=== PATIENT | male | born 1940 | race Caucasian/White ===

== ENCOUNTER 2016-09-04 05:10 | Emergency (ER) | payer MEDICARE, OTHER ==
[2016-09-04 05:28] VITALS: BP 153/85
[2016-09-04] MEDS ORDERED: cefTRIAXone 1 GM, Lidocaine 1% 2.1 ML IM SCH ×2 (05:45)
--- NOTE | 2016-09-04 05:45 | EDM.PDOC ---
ED HPI GENERAL MEDICAL PROBLEM - General Chief Complaint: ENT Problem Stated Complaint: TOOTH PAIN Time Seen by Provider: 09/04/16 05:16 Source of Information: Reports: Patient History Limitations: Reports: No Limitations - History of Present Illness INITIAL COMMENTS - FREE TEXT/NARRATIVE: This is a 75-year-old male. He has a right lower tooth that has advanced dental caries and apparently he broke it some time ago. Yesterday it started hurting him and the pain has gotten worse so he comes to the ER this morning. He thinks it is been some drainage from it. There is been no swelling of his face and no bumps along his gums. He does have an appointment to see his dentist on morning. He denies any fever or chills no nausea or vomiting. Right Lower Tooth/Teeth Pain Score (Numeric/FACES): 8 - Related Data Allergies Allergy/AdvReac Type Severity Reaction Status Date / Time No Known Allergies Allergy Verified 09/04/16 05:31 Home Meds: Home Meds Hydrocodone/Acetaminophen [Hydrocodon-Acetaminophen 5-325] 1 each PO Q6H PRN # 12 tablet 09/04/16 [Rx] Penicillin V Potassium 500 mg PO Q8HR #30 tab 09/04/16 [Rx] Past Medical History Neurological History: Reports: Parkinson's Social & Family History - Tobacco Use Smoking Status *Q: Never Smoker - Recreational Drug Use Recreational Drug Use: No ED ROS ENT - Review of Systems Review Of Systems: See Below Constitutional: Denies: Fever, Chills HEENT: Reports: Other (As per history of present illness) Respiratory: Reports: No Symptoms Cardiovascular: Reports: No Symptoms GI/Abdominal: Reports: No Symptoms Musculoskeletal: Reports: No Symptoms Skin: Reports: No Symptoms Neurological: Reports: No Symptoms Psychiatric: Reports: No Symptoms Hematologic/Lymphatic: Reports: No Symptoms ED EXAM, ENT - Physical Exam Exam: See Below Exam Limited By: No Limitations General Appearance: Alert, WD/WN, No Apparent Distress Eye Exam: Bilateral Eye: Normal Inspection Ears: Normal External Exam Nose: Normal Inspection Mouth/Throat: Other (Patient has teeth that are in fair repair, the bottom right looks like the first molar is fractured and there is some mild drainage noted from it, no gum swelling no soft tissue swelling noted) Neck: Supple Respiratory/Chest: No Respiratory Distress, Lungs Clear, Normal Breath Sounds Cardiovascular: Regular Rate, Rhythm, Systolic Murmur, Other (Very faint systolic ejection murmur) GI/Abdominal: Soft, Non-Tender Back: Full Range of Motion Extremities: Normal Inspection, Normal Range of Motion Neurological: Alert, Oriented Psychiatric: Normal Affect, Normal Mood Skin: Warm, Dry Course - Vital Signs Last Recorded V/S: Last Vital Signs Temp 97.8 F 09/04/16 05:25 Pulse 53 L 09/04/16 05:25 Resp 16 09/04/16 05:25 BP 153/85 H 09/04/16 05:25 Pulse Ox 98 09/04/16 05:25 Departure - Departure Time of Disposition: 05:43 Disposition: Home, Self-Care 01 Condition: Good Clinical Impression: Dental infection, Pain, dental Tooth fracture Qualifiers: Encounter type: initial encounter Fracture type: open Qualified Code(s): S02.5XXB - Fracture of tooth (traumatic), initial encounter for open fracture - Discharge Information Prescriptions: Penicillin V Potassium 500 mg PO Q8HR #30 tab Hydrocodone/Acetaminophen [Hydrocodon-Acetaminophen 5-325] 1 each PO Q6H PRN # 12 tablet PRN Reason: Pain Referrals: Cali Hernandez MD [Primary Care Provider] - Forms: ED Department Discharge Additional Instructions: Follow-up with your dentist on morning or sooner if needed, get the medications tomorrow and take the antibiotics faithfully and use the pain medicines as needed, return to the ER if needed
== END 2016-09-04 06:18 | disposition home or self-care (01) ==
LOC: JD.ED 05:10
DX: K04.7 Periapical abscess without sinus (principal); K03.81 Cracked tooth
CPT/HCPCS: 96372; 99283; J0696

== ENCOUNTER 2018-08-07 10:24 | Emergency (ER) | payer MEDICARE, OTHER ==
[2018-08-07 10:37] VITALS: BP 119/72
--- NOTE | 2018-08-07 12:44 | EDM.PDOC ---
ED HPI GENERAL MEDICAL PROBLEM - General Chief Complaint: Lower Extremity Injury/Pain Stated Complaint: RT KNEE PAIN Time Seen by Provider: 08/07/18 12:26 Source of Information: Reports: Patient History Limitations: Reports: No Limitations - History of Present Illness INITIAL COMMENTS - FREE TEXT/NARRATIVE: Patient is a 77-year-old male Parkinson's patient who presents ED complaining of right knee pain. Patient states last night approximately 1900 hrs. he fell after losing his balance. Since then he's had increasing pain with weightbearing. He notes he has to use a walker to ambulate because of the sensation his knee is going to give out. Patient has a history of repetitive falling due to the Parkinson's. Last night he did not hit his head, nor was there any loss of consciousness, no injury to his neck/back. No pain noted to his right hip or pelvis. He has no complaints of chest pain, shortness of breath , abdominal pain, nausea/vomiting, headache, vision changes, or any new focal neurological deficits, or any complaints to the remaining extremities. He is on no blood thinners. 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 Right Knee Pain Score (Numeric/FACES): 7 - Related Data Allergies Allergy/AdvReac Type Severity Reaction Status Date / Time No Known Allergies Allergy Verified 03/10/18 13:50 Home Meds: Home Meds Carbidopa/Levodopa [Carbidopa-Levo ER 25-100] 3 tab PO 5XDAY 03/10/18 [History] ClonazePAM [KlonoPIN] 0.5 mg PO BEDTIME 03/10/18 [History] Sertraline [Zoloft] 200 mg PO DAILY 03/10/18 [History] Past Medical History Neurological History: Reports: Parkinson's - Past Surgical History HEENT Surgical History: Reports: Cataract Surgery GI Surgical History: Reports: Other (See Below) Other GI Surgeries/Procedures: hemorrhoid surgery Musculoskeletal Surgical History: Reports: Other (See Below) Other Musculoskeletal Surgeries/Procedures:: back surgery Social & Family History - Tobacco Use Smoking Status *Q: Current Status Unknown - Caffeine Use Caffeine Use: Reports: Coffee Review of Systems - Review of Systems Review Of Systems: ROS reveals no pertinent complaints other than HPI. ED EXAM, GENERAL - Physical Exam Exam: See Below Exam Limited By: No Limitations General Appearance: Alert, WD/WN, No Apparent Distress Ears: Hearing Loss Nose: Normal Inspection Throat/Mouth: Normal Voice, No Airway Compromise Head: Atraumatic, Normocephalic Neck: Normal Inspection, Supple, Non-Tender, Full Range of Motion Respiratory/Chest: No Respiratory Distress, Lungs Clear, Normal Breath Sounds, No Accessory Muscle Use, Chest Non-Tender Cardiovascular: Normal Peripheral Pulses, Regular Rate, Rhythm, No Murmur ( Obvious) Peripheral Pulses: 2+: Radial (L), Radial (R), Posterior Tibial (L), Posterior Tibial (R) GI/Abdominal: Normal Bowel Sounds, Soft, Non-Tender, No Organomegaly, No Distention Back Exam: Normal Inspection, Full Range of Motion. No: Paraspinal Tenderness, Vertebral Tenderness Extremities: Non-Tender (All extremities), No Pedal Edema, Other (With palpation of the right knee there is no pain elicited. With provocative testing : Anterior drawer/posterior drawer intact. Slight discomfort noted with valgus. None noted with varus. Patient able to flex and extend the knee with some slight tenderness noted to the medial aspect of the knee with doing so. No locking sensation noted with flexion extension of the knee with external/ internal rotation of the foot.). No: Normal Inspection (Slight swelling noted to the right knee. No bruising, abrasions, or bony abnormalities.) Neurological: Alert, Oriented, CN II-XII Intact, Normal Cognition, No Motor/ Sensory Deficits Psychiatric: Normal Affect, Normal Mood Skin Exam: Warm, Dry, Intact, Normal Color, No Rash Course - Vital Signs Last Recorded V/S: Last Vital Signs Temp 97.5 F 08/07/18 10:31 Pulse 53 L 08/07/18 10:31 Resp 19 08/07/18 10:31 BP 119/72 08/07/18 10:31 Pulse Ox 96 08/07/18 10:31 - Orders/Labs/Meds Orders: Active Orders 24 hr Category Date Time Status DME for Discharge [COMM] Stat Ot 08/07/18 12:39 Ordered - Re-Assessments/Exams Free Text/Narrative Re-Assessment/Exam: On examination of the right knee there is some slight swelling noted. No bruising, swelling, ecchymosis present. With provocative testing only discomfort was noted with valgus. Otherwise everything else was negative. He does have increasing pain with ambulation, weightbearing, with the sensation his right knee is going to give out. There is no prior history of injury to the right knee. He uses a walker intermittently at home. As of recent fall he said he use it regularly to ambulate without falling. He does have a history of falling secondary to Parkinson's. He has no other complaints at this time. X-ray of the right knee reviewed with Dr. Sotomayor with questionable loose body noted to the joint of the right knee. Otherwise joint spacing intact with slight swelling noted to the knee. No acute bony abnormalities noted. I suspect patient has injured the mcl and medial meniscus. I have ordered MRI of the Knee for outpatient and knee immobilizer upon discharge. Patient will schedule appt with Dr. Resendiz for reevaluation in 7 to 10 days. Return precautions discussed with the patient. Patient had no further questions or concerns and agreed with plan. Departure - Departure Time of Disposition: 12:48 Disposition: Home, Self-Care 01 Condition: Good Clinical Impression: Pain of right knee after injury - Discharge Information Instructions: Knee Pain, Adult, How to Use a Knee Immobilizer, [id number] Referrals: Cali Hernandez MD [Primary Care Provider] - Cl Resendiz MD [Physician] - Forms: ED Department Discharge Additional Instructions: When ambulating use the walker and knee immobilizer as instructed. Take off the end utilize her to sleep and also ice. Elevate when able to reduce any swelling and pain. Apply ice to the affected area 4 times a day, 20 minutes in duration, do not apply ice directly on the skin. Utilize Tylenol and Aleve as needed for pain. Please call and make an appointment with Dr. Resendiz to be evaluated in 7-10 days for reevaluation. I have ordered a MRI of the right knee outpatient basis. They will call you with appointment time. Please return to the ED if he developed any new or worsening symptoms. - My Orders Last 24 Hours: My Active Orders 08/07/18 12:39 DME for Discharge [COMM] Stat - Assessment/Plan Last 24 Hours: My Active Orders 08/07/18 12:39 DME for Discharge [COMM] Stat
--- NOTE | 2018-08-07 15:59 | CR ---
Right knee: Four views of the right knee were obtained. Comparison: No previous knee study. Mild medial joint space narrowing is seen. Lateral joint space is preserved. Minimal chondrocalcinosis is seen within the menisci. Small joint effusion is likely present. Mild vascular calcification is seen. No fracture or other bony abnormality is seen. Impression: 1. Slight chondrocalcinosis and mild degenerative change. 2. Probable small joint effusion. 3. No acute bony is abnormality is identified. Diagnostic code #2
== END 2018-08-07 13:03 | disposition home or self-care (01) ==
LOC: JD.ED 10:24
DX: M25.561 Pain in right knee (principal); G20 Parkinson's disease; Z79.899 Other long term (current) drug therapy
CPT/HCPCS: 73564-26-RT; 73564-RT; 99282; 99283-25

== ENCOUNTER 2019-07-26 18:07 | Inpatient (IN) | payer MEDICARE, OTHER ==
[2019-07-26] MEDS ORDERED: Sodium Chloride 0.9% 10 ML Syringe FLUSH PRN (18:39)
[2019-07-26] MEDS ORDERED: HYDROmorphone 0.5 MG/0.5 ML Syringe IVPUSH ONE (18:41)
--- NOTE | 2019-07-26 19:58 | CT ---
CT chest Technique: Multiple axial sections were obtained from above the lung apices inferiorly through the lung bases. Intravenous contrast was not utilized. Findings: Low density finding is noted within the lower most image within the abdomen measuring 8.5 cm most likely due to an upper pole left renal cyst that was incompletely included on the exam. Heart is mildly enlarged. Coronary artery calcifications seen. Aorta shows no aneurysm. Mediastinum and hilar regions show no adenopathy. No axillary adenopathy is seen. No mediastinal hematoma is identified. Slight parenchymal densities are seen within both lung bases, worse on the left side. Differential includes pre-existing pneumonia versus pulmonary contusion. Lungs otherwise are clear. No pleural effusions or pneumothorax is seen. Bone window settings were reviewed. No discrete rib abnormality is appreciated. Degenerative change is noted within the spine. There is mild sclerotic areas within the mid thoracic spine and difficult to exclude a metastatic lesion. This vertebral body also shows mild anterior wedging. There is a slightly displaced midsternal fracture being seen. Displacement by about 3 mm is seen. Mild retrosternal soft tissue swelling is seen. Impression: 1. Mildly displaced midsternal fracture with mild retrosternal soft tissue swelling. 2. Sclerotic areas within the mid thoracic vertebral body showing anterior wedging. This area of mineralization could represent a metastatic bone lesion. If primary cancer not known, bone scan could be considered on an nonemergent basis. 3. Degenerative change seen within other levels of the thoracic spine. 4. Mild areas of increased density within both lung bases worse on the left side. Findings could represent pre-existing pneumonia or represent areas of pulmonary contusion. 5. Other findings believed to be incidental as described above. Diagnostic code #3 Study was dictated in MDT
--- NOTE | 2019-07-26 20:01 | CT ---
Head CT Technique: Multiple axial sections through the brain were obtained. Intravenous contrast was not utilized. Comparison: Prior MRI brain of 06/09/11 is available, no previous head CT study is available. Findings: Ventricles along with basal cisterns and sulci over the convexities are mildly prominent. Mild diminished density is noted within the periventricular white matter most likely representing mild small vessel ischemic demyelination change. No other abnormal parenchymal densities are seen. No evidence of intracranial hemorrhage. No midline shift or mass effect is seen. Bone window settings were reviewed which shows no acute calvarial abnormality. No acute paranasal sinus findings or acute mastoid sinus findings are seen. Impression: 1. Mild senescent change. 2. No acute intracranial abnormality is seen. 3. No acute calvarial abnormality is seen. Diagnostic code #2 Study was dictated in MDT
--- NOTE | 2019-07-26 20:04 | EDM.PDOC ---
ED HPI GENERAL MEDICAL PROBLEM - General Chief Complaint: Chest Pain Stated Complaint: FELL AND HAS PAIN IN CHEST Time Seen by Provider: 07/26/19 18:33 Source of Information: Reports: Patient, Family History Limitations: Reports: No Limitations - History of Present Illness INITIAL COMMENTS - FREE TEXT/NARRATIVE: The patient presents with chest pain. The patient has Parkinson's disease and he is off balance. He fell yesterday in his yard and hit an electrical box. He landed on his chest and may have hit his head. [place] He has even more pain now. He had severe pain when moving him into the bed. He does not have a headache. He has no fever, chills, cough, congestion, runny nose, abdominal pain, nausea or vomiting. He does not feel short of breath. He has no leg pain or arm pain. The patient is not on blood thinners. Onset: Sudden Duration: Minutes: Location: Reports: Chest Quality: Reports: Sharp Severity: Severe Improves with: Reports: Immobilization Worsens with: Reports: Movement Context: Reports: Trauma (He fell yesterday and today) Associated Symptoms: Reports: Chest Pain. Denies: Cough, Fever/Chills, Headaches, Nausea/Vomiting, Shortness of Breath Chest Pain Score (Numeric/FACES): 10 - Related Data Allergies Allergy/AdvReac Type Severity Reaction Status Date / Time No Known Allergies Allergy Verified 07/26/19 18:34 Home Meds: Home Meds Carbidopa/Levodopa [Carbidopa-Levo ER 25-100] 3 tab PO 5XDAY 03/10/18 [History] ClonazePAM [KlonoPIN] 0.5 mg PO BEDTIME 03/10/18 [History] Sertraline [Zoloft] 200 mg PO DAILY 03/10/18 [History] Past Medical History Neurological History: Reports: Parkinson's - Past Surgical History HEENT Surgical History: Reports: Cataract Surgery GI Surgical History: Reports: Other (See Below) Other GI Surgeries/Procedures: hemorrhoid surgery Musculoskeletal Surgical History: Reports: Other (See Below) Other Musculoskeletal Surgeries/Procedures:: back surgery Social & Family History - Tobacco Use Smoking Status *Q: Never Smoker Second Hand Smoke Exposure: No - Caffeine Use Caffeine Use: Reports: None - Recreational Drug Use Recreational Drug Use: No ED ROS GENERAL - Review of Systems Review Of Systems: See Below Constitutional: Reports: No Symptoms HEENT: Reports: No Symptoms Respiratory: Reports: No Symptoms Cardiovascular: Reports: Chest Pain Endocrine: Reports: No Symptoms GI/Abdominal: Reports: No Symptoms : Reports: No Symptoms Musculoskeletal: Reports: No Symptoms ED EXAM, GENERAL - Physical Exam Exam: See Below Exam Limited By: No Limitations General Appearance: Alert, No Apparent Distress Ears: Normal External Exam Nose: Normal Inspection Head: Atraumatic, Normocephalic Neck: Normal Inspection, Supple, Non-Tender Respiratory/Chest: No Respiratory Distress, Lungs Clear, Normal Breath Sounds Cardiovascular: Regular Rate, Rhythm, No Edema, No Murmur, Other (Pain upon palpation to the mid chest with some ecchymosis) GI/Abdominal: Soft, Non-Tender, No Organomegaly, No Mass Extremities: Other (Skin tear to the left arm and left knee) EKG INTERPRETATION EKG Date: 07/26/19 Time: 18:43 Rhythm: Other (sinus bradycardia) Rate (Beats/Min): 54 [place]: Normal P-Wave: Present QRS: Normal ST-T: Normal QT: Normal ID/PQ Interval: 1st degree HB Course - Vital Signs Last Recorded V/S: Last Vital Signs Temp 97.2 F 07/26/19 18:29 Pulse 54 L 07/26/19 18:29 Resp 18 07/26/19 18:29 BP 173/90 H 07/26/19 18:29 Pulse Ox 98 07/26/19 18:29 - Orders/Labs/Meds Orders: Active Orders 24 hr Category Date Time Status Cardiac Monitoring [RC] . DIRECTED Care 07/26/19 18:39 Active EKG Documentation Completion [RC] STAT Care 07/26/19 18:40 Active Peripheral IV Care [RC] . DIRECTED Care 07/26/19 18:40 Active Sodium Chloride 0.9% [Saline Flush] Med 07/26/19 18:39 Active 10 ml FLUSH ASDIRECTED PRN Peripheral IV Insertion Adult [OM.PC] Stat Oth 07/26/19 18:39 Ordered Medication Orders Sodium Chloride (Saline Flush) 10 ml FLUSH ASDIRECTED PRN PRN Reason: Keep Vein Open Last Admin: 07/26/19 18:59 Dose: 10 ml Documented by: SABRINA Labs: Laboratory Tests 06/18/20 06/18/20 Range/Units 19:02 19:02 WBC 5.06 (4.23-9.07) K/mm3 RBC 4.53 L (4.63-6.08) M/mm3 Hgb 13.3 L D (13.7-17.5) gm/dl Hct 41.1 (40.1-51.0) % MCV 90.7 (79.0-92.2) fl MCH 29.4 (25.7-32.2) pg MCHC 32.4 (32.2-35.5) g/dl RDW Std Deviation 46.7 H (35.1-43.9) fL Plt Count 100 L (163-337) K/mm3 MPV 10.2 (9.4-12.3) fl Neut % (Auto) 74.7 H (34.0-67.9) % Lymph % (Auto) 15.4 L (21.8-53.1) % [place] % (Auto) 8.1 (5.3-12.2) % Eos % (Auto) 1.4 (0.8-7.0) Baso % (Auto) 0.2 (0.1-1.2) % Neut # (Auto) 3.78 (1.78-5.38) K/mm3 Lymph # (Auto) 0.78 L (1.32-3.57) K/mm3 [place] # (Auto) 0.41 (0.30-0.82) K/mm3 Eos # (Auto) 0.07 (0.04-0.54) K/mm3 Baso # (Auto) 0.01 (0.01-0.08) K/mm3 Sodium 141 (136-145) mEq/L Potassium 4.1 (3.5-5.1) mEq/L Chloride 106 (98-107) mEq/L Carbon Dioxide 28 (21-32) mEq/L Anion Gap 11.1 (5-15) BUN 17 (7-18) mg/dL Creatinine 1.1 (0.7-1.3) mg/dL Est Cr Clr Drug Dosing 63.31 mL/min Estimated GFR (MDRD) > 60 (>60) mL/min BUN/Creatinine Ratio 15.5 (14-18) Glucose 109 (83-115) mg/dL Calcium 9.0 (8.5-10.1) mg/dL Total Bilirubin 0.5 (0.2-1.0) mg/dL AST 65 H (15-37) U/L ALT 31 (16-63) U/L Alkaline Phosphatase 151 H (46-116) U/L Troponin I 0.040 (0.00-0.056) ng/mL Total Protein 7.2 (6.4-8.2) g/dl Albumin 3.6 (3.4-5.0) g/dl Globulin 3.6 gm/dL Albumin/Globulin Ratio 1.0 (1-2) Meds: Medications Generic Name Dose Route Start Last Admin Trade Name Freq PRN Reason Stop Dose Admin Sodium Chloride 10 ml 07/26/19 18:39 07/26/19 18:59 Saline Flush FLUSH 10 ml ASDIRECTED PRN Administration Keep Vein Open Discontinued Medications Generic Name Dose Route Start Last Admin Trade Name Freq PRN Reason Stop Dose Admin Hydromorphone HCl 0.25 mg 07/26/19 18:41 07/26/19 18:58 Dilaudid IVPUSH 07/26/19 18:42 0.25 mg ONETIME ONE Administration - Re-Assessments/Exams Free Text/Narrative Re-Assessment/Exam: 07/26/19 20:30 I ordered an IV saline lock, EKG, CT of his head and chest and labs. His EKG shows a sinus bradycardia with no acute changes. The CT of his head shows nothing acute. The CT of his chest shows mildly displaced midsternal fracture with mild retrosternal soft tissue swelling. Sclerotic areas within the mild thoracic vertebral body showing anterior wedging. This area or mineralization could represent a metastatic bone lesion. If primary cancer is not know, bone scan could be considered on an nonemergent basis. Degenerative change seen within other levels of the thoracic spine. Mild areas of increased density within both lung bases worse on the left side. Findings could represent pre- existing pneumonia or represent areas of pulmonary contusion. Other findings b elieved to be incidental. He has severe pain with movement. I feel he needs to be admitted. I called Dr Coffman and he agreed to the admission. Departure - Departure Time of Disposition: 20:40 Disposition: Refer to Observation Reason for Transfer *Q: Other Condition: Fair Clinical Impression: Parkinson disease Fall Qualifiers: Encounter type: initial encounter Qualified Code(s): W19.XXXA - Unspecified fall, initial encounter Sternal fracture Qualifiers: Encounter type: initial encounter Sternal location: body of sternum Fracture type: closed Qualified Code(s): S22.22XA - Fracture of body of sternum, initial encounter for closed fracture Pulmonary contusion Qualifiers: Encounter type: initial encounter Laterality: bilateral Qualified Code(s): S27.322A - Contusion of lung, bilateral, initial encounter Referrals: Cali Hernandez MD [Primary Care Provider] - Forms: ED Department Discharge Sepsis Event Note (ED) - Evaluation Sepsis Screening Result: No Definite Risk - Focused Exam Vital Signs: Vital Signs Temp Pulse Resp BP Pulse Ox 07/26/19 18:29 97.2 F 54 L 18 173/90 H 98 - My Orders Last 24 Hours: My Active Orders 07/26/19 18:39 Cardiac Monitoring [RC] . DIRECTED Sodium Chloride 0.9% [Saline Flush] 10 ml FLUSH ASDIRECTED PRN Peripheral IV Insertion Adult [OM.PC] Stat 07/26/19 18:40 EKG Documentation Completion [RC] STAT Peripheral IV Care [RC] . DIRECTED - Assessment/Plan Last 24 Hours: My Active Orders 07/26/19 18:39 Cardiac Monitoring [RC] . DIRECTED Sodium Chloride 0.9% [Saline Flush] 10 ml FLUSH ASDIRECTED PRN Peripheral IV Insertion Adult [OM.PC] Stat 07/26/19 18:40 EKG Documentation Completion [RC] STAT Peripheral IV Care [RC] . DIRECTED
[2019-07-26] MEDS ORDERED: Acetaminophen/oxyCODONE 325-5 MG Tab PO PRN (22:21)
[2019-07-26] MEDS ORDERED: Morphine 4 MG/ML Syringe IVPUSH PRN (22:22)
[2019-07-27] MEDS: Acetaminophen 325 MG Tab PO SCH ×2 (09:16→16:11)
[2019-07-27] MEDS: Ibuprofen 400 MG Tab PO SCH ×2 (09:18→16:10)
--- NOTE | 2019-07-27 10:07 | PCM.HP.2 ---
H&P History of Present Illness - General Date of Service: 07/27/19 Admit Problem/Dx: Admission Diagnosis/Problem Admission Diagnosis/Problem Fracture of sternum Source of Information: Patient, Family, Provider History Limitations: Reports: No Limitations - History of Present Illness Other HPI/Comments: Mr. Cornell is a 78 yo man presenting following trauma; he fell twice yesterday, hitting his head as well as his anterior chest on a meter stick in his backyard. He was diagnosed with Parkinson disease 8 years ago and has been getting progressively weaker, requiring a walker for ambulation which he sometimes does not use. he denies any syncope preceding his falls. In the ER last night, he was evaluated for blunt traumatic injuries. Head CT was negative, but Chest CT shows a displaced sternal fracture, corresponding to where he hit his chest yesterday. An EKG was obtained in the emergency room without findings to suggest cardiac contusion. There is question of bony metastases, an incidental finding, on imaging. The patient has no personal history of cancer. Chest Pain Score (Numeric/FACES): 10 - Related Data Allergies/Adverse Reactions: Allergies Allergy/AdvReac Type Severity Reaction Status Date / Time No Known Allergies Allergy Verified 07/26/19 18:34 Home Medications: Home Meds Carbidopa/Levodopa [Carbidopa-Levo ER 25-100] 25 - 100 tab PO DAILY 03/10/18 [History] Sertraline [Zoloft] 200 mg PO DAILY 03/10/18 [History] Past Medical History Genitourinary History: Reports: Renal Calculus Neurological History: Reports: Parkinson's Psychiatric History: Reports: Anxiety, Depression - Past Surgical History HEENT Surgical History: Reports: Cataract Surgery GI Surgical History: Reports: Other (See Below) Other GI Surgeries/Procedures: hemorrhoid surgery Musculoskeletal Surgical History: Reports: Other (See Below) Other Musculoskeletal Surgeries/Procedures:: back surgery Social & Family History - Family History Family Medical History: Noncontributory - Tobacco Use Smoking Status *Q: Never Smoker Second Hand Smoke Exposure: No - Caffeine Use Caffeine Use: Reports: Coffee Caffeine Use Comment: occasionally - Recreational Drug Use Recreational Drug Use: No H&P Review of Systems - Review of Systems: Review Of Systems: See Below General: Reports: Weakness Cardiovascular: Reports: Chest Pain Gastrointestinal: Reports: No Symptoms Genitourinary: Reports: No Symptoms Exam - Exam Exam: See Below - Vital Signs Vital Signs: Last Vital Signs Temp 36.4 C 07/27/19 08:23 Pulse 54 L 07/27/19 08:23 Resp 16 07/27/19 08:23 BP 134/66 07/27/19 08:23 Pulse Ox 94 L 07/27/19 08:23 Weight: 98.384 kg - Exam General: Alert, Oriented, Cooperative Lungs: Clear to Auscultation Cardiovascular: Regular Rate, Systolic Murmur, Other (4/6 holosystolic murmur best heard at left second intercostal space) GI/Abdominal Exam: Soft Extremities: Normal Inspection, No Pedal Edema Skin: Other (abrasion to anterior midchest, tender) Psychiatric: Alert, Normal Mood - Patient Data Lab Results Last 24 hrs: Laboratory Results - last 24 hr 07/26/19 07/26/19 Range/Units 19:02 19:02 WBC 5.06 (4.23-9.07) K/mm3 RBC 4.53 L (4.63-6.08) M/mm3 Hgb 13.3 L D (13.7-17.5) gm/dl Hct 41.1 (40.1-51.0) % MCV 90.7 (79.0-92.2) fl MCH 29.4 (25.7-32.2) pg MCHC 32.4 (32.2-35.5) g/dl RDW Std Deviation 46.7 H (35.1-43.9) fL Plt Count 100 L (163-337) K/mm3 MPV 10.2 (9.4-12.3) fl Neut % (Auto) 74.7 H (34.0-67.9) % Lymph % (Auto) 15.4 L (21.8-53.1) % Sabine % (Auto) 8.1 (5.3-12.2) % Eos % (Auto) 1.4 (0.8-7.0) Baso % (Auto) 0.2 (0.1-1.2) % Neut # (Auto) 3.78 (1.78-5.38) K/mm3 Lymph # (Auto) 0.78 L (1.32-3.57) K/mm3 Sabine # (Auto) 0.41 (0.30-0.82) K/mm3 Eos # (Auto) 0.07 (0.04-0.54) K/mm3 Baso # (Auto) 0.01 (0.01-0.08) K/mm3 Sodium 141 (136-145) mEq/L Potassium 4.1 (3.5-5.1) mEq/L Chloride 106 (98-107) mEq/L Carbon Dioxide 28 (21-32) mEq/L Anion Gap 11.1 (5-15) BUN 17 (7-18) mg/dL Creatinine 1.1 (0.7-1.3) mg/dL Est Cr Clr Drug Dosing 63.31 mL/min Estimated GFR (MDRD) > 60 (>60) mL/min BUN/Creatinine Ratio 15.5 (14-18) Glucose 109 (83-115) mg/dL Calcium 9.0 (8.5-10.1) mg/dL Total Bilirubin 0.5 (0.2-1.0) mg/dL AST 65 H (15-37) U/L ALT 31 (16-63) U/L Alkaline Phosphatase 151 H (46-116) U/L Troponin I 0.040 (0.00-0.056) ng/mL Total Protein 7.2 (6.4-8.2) g/dl Albumin 3.6 (3.4-5.0) g/dl Globulin 3.6 gm/dL Albumin/Globulin Ratio 1.0 (1-2) Result Diagrams: 07/26/19 19:02 07/26/19 19:02 Sepsis Event Note - Evaluation Sepsis Screening Result: No Definite Risk - Focused Exam Vital Signs: Vital Signs Temp Pulse Resp BP Pulse Ox 07/27/19 08:23 36.4 C 54 L 16 134/66 94 L 07/27/19 04:36 36.6 C 54 L 18 122/65 93 L 07/26/19 22:07 63 18 135/80 95 Date Exam was Performed: 07/27/19 Time Exam was Performed: 10:02 *Q Meaningful Use (ADM) - VTE *Q VTE Mechanical Contraindications *Q: At Risk for Falls Problem List Initiated/Reviewed/Updated: Yes Orders Last 24hrs: Active Orders 24 hr Category Date Time Status Admission Status [Patient Status] [ADT] Routine ADT 07/26/19 20:31 Active Antiembolic Devices [RC] PER UNIT ROUTINE Care 07/27/19 08:19 Active Bedrest Bathroom Privileges [RC] BID Care 07/26/19 22:18 Active Cardiac Monitoring [RC] . DIRECTED Care 07/26/19 18:39 Active EKG Documentation Completion [RC] ASDIRECTED Care 07/27/19 09:18 Active EKG Documentation Completion [RC] STAT Care 07/26/19 18:40 Active Incentive Spirometry [RT Incentive Spirometry] [RC] Care 07/26/19 22:20 Active Q2HWA Oxygen Therapy Adult [Oxygen Therapy] [RC] ASDIRECTED Care 07/26/19 22:19 Active Peripheral IV Care [RC] Q2HR Care 07/26/19 18:40 Active Vital Signs [RC] Q4HR Care 07/26/19 22:18 Active OT Evaluation and Treatment [CONS] Routine Cons 07/27/19 08:18 Active PT Evaluation and Treatment [CONS] Routine Cons 07/27/19 08:18 Active Regular Diet [DIET] Diet 07/27/19 Breakfast Active Acetaminophen [Tylenol] Med 07/27/19 08:30 Active 975 mg PO Q8H Carbidopa/Levodopa [Sinemet Cr 25-100 mg] Med 07/27/19 09:00 Pending 1 tab PO DAILY Ibuprofen [Motrin] Med 07/27/19 08:30 Active 400 mg PO Q8H Morphine Med 07/26/19 22:22 Active 4 mg IVPUSH Q4H PRN Sertraline Med 07/27/19 09:00 Ordered 200 mg PO DAILY Sodium Chloride 0.9% [Saline Flush] Med 07/26/19 18:39 Active 10 ml FLUSH ASDIRECTED PRN Peripheral IV Insertion Adult [OM.PC] Stat Oth 07/26/19 18:39 Ordered SCD [Sequential Compression Device] [OM.PC] Routine Oth 07/27/19 08:18 Ordered Resuscitation Status Routine Resus Stat 07/26/19 22:47 Ordered EKG 12 Lead [EK] Urgent Ther 07/27/19 09:18 Stop Req Medication Orders Acetaminophen (Tylenol) 975 mg PO Q8H JELANI Last Admin: 07/27/19 09:16 Dose: 975 mg Documented by: LAVERNIRNAT Carbidopa/Levodopa (Sinemet Cr 25-100 Mg) 1 tab PO DAILY JELANI Ibuprofen (Motrin) 400 mg PO Q8H JELANI Last Admin: 07/27/19 09:18 Dose: 400 mg Documented by: COMPA Morphine Sulfate (Morphine) 4 mg IVPUSH Q4H PRN PRN Reason: Pain Last Admin: 07/27/19 04:26 Dose: 4 mg Documented by: [id number] Non-Formulary Medication (Sertraline) 200 mg PO DAILY [facility] Sodium Chloride (Saline Flush) 10 ml FLUSH ASDIRECTED PRN PRN Reason: Keep Vein Open Last Admin: 07/26/19 18:59 Dose: 10 ml Documented by: [id number] Assessment/Plan Comment:: Low impact blunt trauma with displaced sternal fracture in patient with Significant debility from Parkinson disease. Plan for combined scheduled analgesia using non-narcotics: tylenol and ibuprofen. EKG to rule out cardiac contusion was done in ER last night. Anticipate discharge once PT/OT can evaluate patient and help plan safe disposition, and patient can take good breaths on IS with pain manageable. Regarding longer term, question on imaging raised of undiagnosed metastatic disease. Plan for follow up and additional diagnostics in outpatient setting, coordinated with patient's primary care provider, Dr. Diallo. - Mortality Measure Prognosis:: Poor
[2019-07-27] MEDS: SERTRALINE 100 MG PO SCH (11:03)
[2019-07-27] MEDS: Carbidopa/Levodopa 25-100 MG Tab PO SCH (11:04)
[2019-07-27] MEDS ORDERED: Carbidopa/Levodopa 25-100 MG Tab PO SCH (14:30)
[2019-07-28] MEDS: Ibuprofen 400 MG Tab PO SCH ×3 (05:50→16:38)
[2019-07-28] MEDS: Acetaminophen 325 MG Tab PO SCH ×3 (05:50→16:39)
[2019-07-28] MEDS: Carbidopa/Levodopa 25-100 MG Tab PO SCH ×2 (06:31→16:38)
[2019-07-28] MEDS: SERTRALINE 100 MG PO SCH (09:04)
[2019-07-28] MEDS: Sertraline 50 MG Tab PO SCH (09:11)
[2019-07-28] MEDS ORDERED: Morphine 2 MG/ML Syringe IVPUSH PRN (09:48)
--- NOTE | 2019-07-28 09:53 | PCM.SN.2 ---
- Free Text/Narrative Note: Hospital Day 3, s/p low impact blunt trauma with displaced sternal fracture S: worse chest pain this morning. Doing well ambulating and working with PT/OT O: AF-VSS, SPO2 >95% on room air, pulls 2 L on IS Chest wall abrasion stable A: Doing well overall with pain control and pulmonary toilet. Patient evaluated by team and found to have substantial supportive needs- currently Mr. Cornell is not agreeable to discharge to a nursing facility. Switched to inpatient status given ongoing need for physical and occupational therapy and need for resource setup prior to safe discharge given debility and risk for falls. P: Continue pulmonary toilet, physical and occupational therapy. Add 0.5 mg morphine IV prn breakthrough pain. Await safe discharge plan with all necessary home resources; working with CINTHIA/APRYL on this, hopeful for discharge to home Tuesday.
[2019-07-28] MEDS: Docusate Sodium 100 MG Cap PO SCH (16:37)
[2019-07-28] MEDS: Polyethylene Glycol 3350 Powder 17 GM Packet PO SCH (16:37)
[2019-07-28] MEDS ORDERED: traZODone 50 MG Tab PO PRN ×2 (19:50→21:30)
[2019-07-29] MEDS: Ibuprofen 400 MG Tab PO SCH ×3 (01:21→15:30)
[2019-07-29] MEDS: Acetaminophen 325 MG Tab PO SCH ×3 (01:21→15:30)
[2019-07-29] MEDS: Carbidopa/Levodopa 25-100 MG Tab PO SCH ×2 (07:14→14:02)
[2019-07-29] MEDS: Sertraline 50 MG Tab PO SCH (08:06)
[2019-07-29] MEDS: Docusate Sodium 100 MG Cap PO SCH (08:09)
[2019-07-29] MEDS: Polyethylene Glycol 3350 Powder 17 GM Packet PO SCH (08:09)
--- NOTE | 2019-07-29 08:45 | PCM.SN.2 ---
- Free Text/Narrative Note: HD 3, s/p fall with displaced sternal fracture S: some pain with ambulation and activity, but overall doing well O: AF-VSS awake and alert, no distress chest wall tenderness at site of abrasion A: Frail elderly man with Parkinson disease presents with sternal fracture after multiple falls from standing. Pain is well controlled with good pulmonary toilet P: Plan for d/c once all resources are set up for safe discharge to home. He will need close follow up with his PCP regarding imaging finding of suspected bony metastatic disease.
[2019-07-29] MEDS ORDERED: Magnesium Hydroxide 400 MG/5 ML Susp 30 ML Cup PO ONE (16:00)
[2019-07-30] MEDS: Acetaminophen 325 MG Tab PO SCH ×2 (03:42→09:43)
[2019-07-30] MEDS: Ibuprofen 400 MG Tab PO SCH ×2 (03:46→09:43)
[2019-07-30] MEDS: Carbidopa/Levodopa 25-100 MG Tab PO SCH ×2 (06:16→13:46)
--- NOTE | 2019-07-30 08:02 | PCM.SN.2 ---
- Free Text/Narrative Note: HD 4, sternal fracture after fall S: pain well controlled, no complaints O: AF_VSS sitting up in chair, no distress breathing comfortably on room air, SpO2 >95% on room air, >1 L on IS A: Frail patient with Parkinson disease and possibly undiagnosed metastatic cancer based on CT findings who is at high risk for falls. Doing well as far as recovery from sternal fracture. P: Patient is, at this point, fit for discharge from the hospital as long as he has appropriate home support in accordance with recommendations from PT/OT and case management, as the patient is not open to staying at a nursing facility. This is why he has required > 96 hr hospitalization. Continue therapies in house in the meantime.
[2019-07-30] MEDS: Docusate Sodium 100 MG Cap PO SCH (08:39)
[2019-07-30] MEDS: Polyethylene Glycol 3350 Powder 17 GM Packet PO SCH (08:40)
[2019-07-30] MEDS: Sertraline 50 MG Tab PO SCH (08:40)
[2019-07-30 09:34] VITALS: BP 126/65; PULSE 66
--- NOTE | 2019-07-30 13:30 | PCM.DCSUM1 ---
Discharge Summary - Hospital Course Free Text/Narrative:: Mr. Cornell is a 78 yo man diagnosed with Parkinson disease 8 years ago who has had progressive weakness and imbalance, and last week fell multiple times, sustaining injuries including a displaced sternal fracture. On CT, incidental findings of possible bony metastases involving the vertebrae were noted. He was admitted to the hospital for monitoring, pain control and pulmonary toilet. He did well, and was evaluated by physical therapy and occupational therapy and case management. Recommendations were made for placement in a penitentiary facility. The patient declines SNF placement, and a compromise for discharge to home with home health services was made. Face to Face meeting with pt and or family. Pt has fractured sternum, fall, Parkinson Disease and pulmonary contusion. Pt is in need Home Health Care services for; low activity tolerance, functional mobility, standing balance, strength, transfers. Nursing for pain management, vitals, skilled assessment, disease management and disease education. CAN services for bathing and assistance with self-cares. Physical therapy for pt for balance training, gait training, bed mobility, neuromuscular reduction, therapeutic exercises, pain management and transfer training. Occupational therapy for activity tolerance, ADLs and t/f training, caregiver training, balance training, functional mobility training, therapeutic exercises and therapeutic activities. Pt is currently homebound related to being walker dependent, decreased activity tolerance, and a decreased level of endurance. Pt will be followed by his primary provider. Diagnosis: Stroke: No - Discharge Data Discharge Date: 07/30/19 Discharge Disposition: Home, Self-Care 01 Condition: Good - Referral to Home Health Primary Care Physician: Cali Hernandez MD - Patient Summary/Data Consults: Consultations 07/27/19 08:18 OT Evaluation and Treatment [CONS] Routine PT Evaluation and Treatment [CONS] Routine - Patient Instructions Diet: Usual Diet as Tolerated Activity: No Strenuous Activities - Discharge Plan *PRESCRIPTION DRUG MONITORING PROGRAM REVIEWED*: Not Applicable *COPY OF PRESCRIPTION DRUG MONITORING REPORT IN PATIENT ALEJANDRO: Not Applicable Home Medications: Home Meds Carbidopa/Levodopa [Carbidopa-Levo ER 25-100] 25 - 100 tab PO BID 03/10/18 [History] Sertraline [Zoloft] 200 mg PO DAILY 03/10/18 [History] Oxygen Therapy Mode: Room Air Referrals: Cali Hernandez MD [Primary Care Provider] - 08/03/19 9:00 am (Please follow up with Dr. Diallo on August 02 at 9:00.) - Discharge Summary/Plan Comment DC Time >30 min.: No - Patient Data Vitals - Most Recent: Last Vital Signs Temp 36.7 C 07/30/19 08:39 Pulse 66 07/30/19 08:39 Resp 16 07/30/19 08:39 BP 126/65 07/30/19 08:39 Pulse Ox 97 07/30/19 08:39 Weight - Most Recent: 98.157 kg I&O - Last 24 hours: Intake & Output 07/29/19 07/30/19 07/30/19 22:59 06:59 14:59 Intake Total 400 1000 0 Output Total 1475 900 Balance -1075 100 0 Med Orders - Current: Current Medications Acetaminophen (Tylenol) 975 mg PO Q8HR [facility] Carbidopa/Levodopa (Sinemet 25-100 Mg) 1 tab PO DAILY@0630 [facility] Last Admin: 07/30/19 06:16 Dose: 1 tab Documented by: Carbidopa/Levodopa (Sinemet 25-100 Mg) 1 tab PO DAILY@1430 [facility] Last Admin: 07/29/19 14:02 Dose: 1 tab Documented by: Docusate Sodium (Colace) 100 mg PO DAILY [facility] Last Admin: 07/30/19 08:39 Dose: 100 mg Documented by: Ibuprofen (Motrin) 400 mg PO Q8HR [facility] Morphine Sulfate (Morphine) 0.5 mg IVPUSH Q4H PRN PRN Reason: Pain (severe 7-10) Polyethylene Glycol (Miralax) 17 gm PO DAILY [facility] Last Admin: 07/30/19 08:40 Dose: 17 gm Documented by: Sertraline HCl (Zoloft) 200 mg PO DAILY [facility] Last Admin: 07/30/19 08:40 Dose: 200 mg Documented by: Sodium Chloride (Saline Flush) 10 ml FLUSH ASDIRECTED PRN PRN Reason: Keep Vein Open Last Admin: 07/26/19 18:59 Dose: 10 ml Documented by: Trazodone HCl (Trazodone) 50 mg PO BEDTIME PRN PRN Reason: Sleep Last Admin: 07/29/19 21:13 Dose: 50 mg Documented by: Discontinued Medications Acetaminophen (Tylenol) 975 mg PO Q8H [facility] Last Admin: 07/30/19 09:43 Dose: Not Given Documented by: Carbidopa/Levodopa (Sinemet 25-100 Mg) 1 tab PO DAILY@0630 [facility] Last Admin: 07/28/19 06:31 Dose: 1 tab Documented by: Carbidopa/Levodopa (Sinemet 25-100 Mg) 1 tab PO DAILY@1430 [facility] Last Admin: 07/27/19 16:09 Dose: 1 tab Documented by: Hydromorphone HCl (Dilaudid) 0.25 mg IVPUSH ONETIME ONE Stop: 07/26/19 18:42 Last Admin: 07/26/19 18:58 Dose: 0.25 mg Documented by: Ibuprofen (Motrin) 400 mg PO Q8H [facility] Last Admin: 07/30/19 09:43 Dose: Not Given Documented by: Magnesium Hydroxide (Milk Of Magnesia) 30 ml PO ONETIME ONE Stop: 07/29/19 16:01 Last Admin: 07/29/19 15:29 Dose: 30 ml Documented by: Morphine Sulfate (Morphine) 4 mg IVPUSH Q4H PRN PRN Reason: Pain Last Admin: 07/27/19 04:26 Dose: 4 mg Documented by: Sertraline 100 Mg Tabs Pt's Own Medication 0 mg PO DAILY [facility] Last Admin: 07/28/19 09:04 Dose: Not Given Documented by: Oxycodone/Acetaminophen (Percocet 325-5 Mg) 1 tab PO Q4H PRN PRN Reason: Pain (moderate 4-6) Trazodone HCl (Trazodone) 50 mg PO ONETIME PRN PRN Reason: Sleep Stop: 07/28/19 23:59 Last Admin: 07/28/19 20:34 Dose: 50 mg Documented by: *Q Meaningful Use (DIS) - VTE *Q VTE Mechanical Contraindications *Q: At Risk for Falls
[2019-07-30] MEDS ORDERED: Ibuprofen 400 MG Tab PO SCH (14:00)
[2019-07-30] MEDS ORDERED: Acetaminophen 325 MG Tab PO SCH (14:00)
== END 2019-07-30 15:06 | disposition home or self-care (01) | DRG 565 ==
LOC: JD.ED 18:07 → JD.MS 20:31 → OBSVTOIN 07-27 11:06
PROVIDERS: ADMIT Surgery; ATTEND Surgery
DX: S22.22XA Fracture of body of sternum, initial encounter for closed fracture (principal); S27.322A Contusion of lung, bilateral, initial encounter; W19.XXXA Unspecified fall, initial encounter; R29.6 Repeated falls; G20 Parkinson's disease; F41.9 Anxiety disorder, unspecified; F32.9 Major depressive disorder, single episode, unspecified; Z91.81 History of falling; Z87.442 Personal history of urinary calculi; Z79.899 Other long term (current) drug therapy; Z87.891 Personal history of nicotine dependence; Z98.49 Cataract extraction status, unspecified eye; Z98.890 Other specified postprocedural states
CPT/HCPCS: 36415; 70450; 71250; 80053; 84484; 85025; 93005; 96374; 97167; 97530 ×2; 99285; A9270 ×4; J1170; J2270; 96375; 97110-GO; 97110-GP; 97116-GP; 97162-GP; G0378

== ENCOUNTER 2019-10-16 11:22 | Emergency (ER) | payer MEDICARE, OTHER ==
--- NOTE | 2019-10-16 12:52 | EDM.PDOC ---
ED HPI GENERAL MEDICAL PROBLEM - General Chief Complaint: General Stated Complaint: FALL/RIB PAIN Time Seen by Provider: 10/16/19 12:46 Source of Information: Reports: Patient History Limitations: Reports: No Limitations - History of Present Illness INITIAL COMMENTS - FREE TEXT/NARRATIVE: 79-year-old male presents to the ED for evaluation of a fall at home last evening around 1800 hrs. He states he has Parkinson's disease and has very poor balance. He states that he was in the bathroom with the aid of his and it is a small area. They more or less bumped into each other which knocked him off balance and he fell hard landing with his left ribs against the toilet. It did knock the wind out of him. He is not on any blood thinners but bruises easily. Complains of pain along the lateral aspect of his lower left ribs. He did eat breakfast this morning. No nausea or vomiting. Did strike his head but states no dominguez or contusions were evident and certainly no loss of consciousness. He states he can walk fine with no injuries to his hips and no injuries to his left elbow/shoulder Onset: Sudden Onset Date: 10/15/19 Onset Time: 18:00 Duration: Hour(s):, Getting Worse Location: Reports: Chest (Left lower lateral rib contusion.) Quality: Reports: Ache, Other Severity: Moderate (Mild pleuritic pain with deep breathing) Improves with: Reports: Rest Worsens with: Reports: Movement (Deep breathing and walking make it worse.) Context: Reports: Trauma (Fall at home in the bathroom last evening.). Denies: Activity, Exercise, Lifting, Sick Contact Associated Symptoms: Reports: Chest Pain, Malaise. Denies: Confusion, Cough, cough w sputum, Diaphoresis, Fever/Chills, Headaches, Loss of Appetite, Nausea/Vomiting, Rash, Seizure, Shortness of Breath, Syncope, Weakness Treatments CLINICAL SERVICES CONSULTANT: Reports: NSAIDS Left Abdomen Pain Score (Numeric/FACES): 10 - Related Data Allergies Allergy/AdvReac Type Severity Reaction Status Date / Time No Known Allergies Allergy Verified 07/26/19 18:34 Home Meds: Home Meds Carbidopa/Levodopa [Carbidopa-Levo ER 25-100] 25 - 100 tab PO BID 03/10/18 [History] Sertraline [Zoloft] 200 mg PO DAILY 03/10/18 [History] Past Medical History Genitourinary History: Reports: Renal Calculus Neurological History: Reports: Parkinson's (Noticed about 7 years ago. He does not feel that medications have helped much. Has very poor balance.) Psychiatric History: Reports: Anxiety, Depression - Past Surgical History HEENT Surgical History: Reports: Cataract Surgery GI Surgical History: Reports: Other (See Below) Other GI Surgeries/Procedures: hemorrhoid surgery Musculoskeletal Surgical History: Reports: Other (See Below) Other Musculoskeletal Surgeries/Procedures:: back surgery Social & Family History - Family History Family Medical History: Noncontributory - Caffeine Use Caffeine Use: Reports: Soda, Tea Caffeine Use Comment: occasionally - Recreational Drug Use Recreational Drug Use: No - Living Situation & Occupation Living situation: Reports: Occupation: Retired ED ROS GENERAL - Review of Systems Review Of Systems: See Below Constitutional: Denies: Fever, Chills, Malaise, Weakness, Fatigue, Decreased Appetite, Weight Loss HEENT: Reports: Glasses, Hearing Loss Respiratory: Denies: Shortness of Breath (Highly hard of hearing.), Wheezing, Pleuritic Chest Pain, Cough, Sputum Cardiovascular: Reports: Chest Pain, Blood Pressure Problem (History of present illness.), Dyspnea on Exertion. Denies: Claudication, Edema, Lightheadedness, Orthopnea Endocrine: Reports: Fatigue (Sometimes.) GI/Abdominal: Reports: Constipation. Denies: Hematemesis, Hematochezia : Reports: Frequency, Other (Usually nocturia x3. Has known BPH.) Musculoskeletal: Reports: Joint Pain Skin: Reports: Bruising (Knees hips low back neck and shoulders at times. Bruises extremely easily.) Neurological: Reports: Difficulty Walking, Gait Disturbance (Parkinson's disease.) Psychiatric: Reports: No Symptoms ( Very poor balance.) Hematologic/Lymphatic: Reports: No Symptoms Immunologic: Reports: No Symptoms ED EXAM, GENERAL - Physical Exam Exam: See Below Exam Limited By: No Limitations General Appearance: Alert, WD/WN, No Apparent Distress, Other (Temperature is 36.4. Heart rate is 58 and sinus. Respiratory to 22 with sats of 99% on room air BP slightly elevated at 150/79.) Eye Exam: Bilateral Eye: Abnormal EOM (No blepharal pallor or scleral icterus.) Throat/Mouth: Normal Inspection, Normal Lips, Normal Oropharynx, Other (No dental or injury to the tongue.) Head: Atraumatic, Normocephalic, Other (Could find no outward signs of any head or facial trauma.) Neck: Normal Inspection, Supple, Non-Tender, Full Range of Motion, Carotid Bruit (He has a right carotid bruit but it is referred from his chest I significant aortic stenosis.). No: Lymphadenopathy (L), Lymphadenopathy (R) Respiratory/Chest: No Respiratory Distress, Lungs Clear, Normal Breath Sounds, No Accessory Muscle Use, Chest Non-Tender, Other (Patient has an area of ecchymoses from the lateral clavicular line to the posterior axillary line lower ribs on the left side larger than the palm of my hand. This spreads from ribs 8 10/17/2010 and 12. Ribs 9 and 10 appear to be the most tender to palpation. There is no subcutaneous emphysema or obvious crepitus.) Cardiovascular: Regular Rate, Rhythm, No Edema, No Gallop, No JVD, Systolic Murmur (Is a holosystolic ejection murmur best heard at the left lower sternal border that radiates up towards the right carotid artery graded 3 out of 6 aortic stenosis. He has a second murmur radiating to the left axilla suggestive of mitral insufficiency also graded as 3 out of 6.) Peripheral Pulses: 2+: Carotid (L), Carotid (R), Posterior Tibial (L), Posterior Tibial (R), Dorsalis Pedis (L), Dorsalis Pedis (R) GI/Abdominal: Soft (Bowel sounds are fairly quiesced sent in all 4 quadrants.), Non-Tender, No Organomegaly, No Abnormal Bruit, No Mass, Pelvis Stable, Abnormal Bowel Sounds, Other. No: Guarding (Minimally tender left upper quadrant of the abdomen without rebound or guarding.), Rigid, Rebound Extremities: Other (He has a large amount of ecchymoses over the dorsal aspect of his left forearm from wrist to mid forearm. He states this is an old injury. He has new bruising on the volar aspect of his left forearm with full range of motion. No bruising to the left shoulder. No bruising to the left hip buttock or leg.) Neurological: Alert, Oriented, CN II-XII Intact, Normal Cognition, Other (Bradykinesia with walking. Mildly ataxic gait.) Psychiatric: Normal Affect ( No tremor.), Normal Mood Skin Exam: Warm, Dry, Intact, Normal Color, Ecchymosis (Multiple bruises to his forearms and dorsal hands of varying antiquity) Course - Vital Signs Last Recorded V/S: Last Vital Signs Temp 36.4 C 10/16/19 11:42 Pulse 70 10/16/19 14:16 Resp 16 10/16/19 14:16 BP 146/82 H 10/16/19 14:16 Pulse Ox 96 10/16/19 14:16 - Orders/Labs/Meds Meds: Medications Discontinued Medications Generic Name Dose Route Start Last Admin Trade Name Freq PRN Reason Stop Dose Admin Iopamidol 100 ml 10/16/19 13:03 10/16/19 13:15 Isovue-300 (61%) IVPUSH 10/16/19 13:04 100 ml ONETIME ONE Administration Sodium Chloride 10 ml 10/16/19 13:03 10/16/19 13:15 Saline Flush FLUSH 10 ml ONETIME PRN Administration Keep Vein Open - Radiology Interpretation Free Text/Narrative:: 79-year-old male presents to the ED after falling at home last night. He states he has Parkinson's disease and his balance is poor. His is aiding him to the bathroom and it is quite narrow. He states they more or less bumped into each other and he got knocked down falling hard against the toilet with his left ribs. He has a large amount of ecchymoses left lateral ribs from #8-12 larger than the palm of my hand. There is no subcutaneous air. Ribs 9 and 10 appear to be fairly tender to palpation worrisome for a fracture. He has mild ten derness on deep palpation left upper quadrant of the abdomen but no rebound tenderness elicited. Patient will have CT of his chest abdomen pelvis with IV contrast performed to rule out injury to the spleen and underlying kidney. Of note the patient is not taking any anticoagulants. - Re-Assessments/Exams Free Text/Narrative Re-Assessment/Exam: 10/16/19 14:01 CT of the chest abdomen pelvis has been performed with IV contrast only. Chest reveals no pericardial thickening. Coronary artery calcification appreciated. Aorta shows no aneurysm. Mediastinum and hilar regions appear within normal limits. No axillary adenopathy is seen. Slight areas of atelectasis are seen posteriorly within both lung bases. Lungs otherwise appear clear. No pleural effusions or pneumothorax appreciated. Bone window settings were reviewed. No acute osseous finding is appreciated. Compression deformity is noted within the mid thoracic spine which contains a hemangioma. This appears old. There is a fracture with slight offset within the mid sternum. This appears to contain a lucency and could represent pathologic fracture age of this is otherwise indeterminate. Impression is fracture within the mid sternum. Questionable lesion in this area and difficult to exclude pathologic fracture. There is slightly displaced. Age of this is indeterminant but and no callus is appreciated. CT of the abdomen pelvis reveals liver contains no focal parenchymal abnormality. Spleen is slightly enlarged measuring 15 cm in length. Adrenal glands show no nodule. Pancreas shows no discrete abnormality. Gallbladder contains a single calcified gallstone. Aorta shows atherosclerotic change without aneurysm. Kidneys show symmetric contrast enhancement. Large cyst is noted within the left kidney measuring 8.7 cm. Several small cortical cysts are seen throughout other portions of the kidneys. No pelvic mass or adenopathy is seen. Delayed images show contrast within the bladder. Bone window settings were reviewed which shows degenerative change with vacuum phenomena and disc space narrowing at the L4-5 and L5-S1 levels. Degenerative apophyseal changes seen within the lower lumbar spine. 10/16/19 14:07 on discussion with the patient he indicates that he did have a traumatic injury to his sternum a few years ago but it does not bother him anymore. States it was sore for about a month. Patient reassured today that he has battered and bruised but not broken. No changes to be made to medications. He will use Tylenol and Motrin for pain as needed. Advised follow-up with his personal care physician if any further problems occur such as fever chills or increased productive cough. Advised that he needs to take some deep breaths on the right side about 10 times every hour to prevent atelectasis and pneumonia. Departure - Departure Time of Disposition: 14:08 Disposition: Home, Self-Care 01 Condition: Fair Clinical Impression: Fall as cause of accidental injury at home as place of occurrence, Contusion of chest wall with intact skin - Discharge Information *PRESCRIPTION DRUG MONITORING PROGRAM REVIEWED*: Not Applicable *COPY OF PRESCRIPTION DRUG MONITORING REPORT IN PATIENT ALEJANDRO: Not Applicable Instructions: Contusion, [id number] Referrals: Cali Hernandez MD [Primary Care Provider] - Forms: ED Department Discharge Additional Instructions: Evaluation in the emergency room today in regards to a fall at home last evening with blunt trauma to the left lower lateral ribs. There is significant bruising from ribs #8-12 on the left lateral chest wall. Because the spleen lives right underneath these ribs and your age CT scan of the chest abdomen and pelvis was carried out to make sure there were no injuries to the underlying spleen or kidney. CT of the chest reveals no fractured ribs and no bruising to the und erlying lung. There is some calcification of the arteries to your heart which is to be expected at age 79. CT of the abdomen reveals spleen to be slightly enlarged at 15 cm but no injury to the spleen or rupture has occurred and the kidneys appeared to be normal. There is a cyst off these superior portion of the left kidney which is of no consequence. You were found to have 1 gallstone within your gallbladder. No aneurysm of the major blood vessel the aorta identified on CT exam. Therefore you are bruised and contused but you did not break any bones. The bruise will take about 10 to 14 days to resolve. No changes to medications are necessary at this time. May continue Motrin or Aleve as needed for pain relief. Follow-up with your personal care physician if any further problems occur. Sepsis Event Note (ED) - Evaluation Sepsis Screening Result: No Definite Risk - Focused Exam Vital Signs: Vital Signs Temp Pulse Resp BP Pulse Ox 10/16/19 14:16 70 16 146/82 H 96 10/16/19 11:42 36.4 C 58 L 22 H 150/79 H 99
[2019-10-16] MEDS ORDERED: Sodium Chloride 0.9% 10 ML Syringe FLUSH PRN (13:03)
[2019-10-16] MEDS ORDERED: Iopamidol 612 MG/ML 100 ML Bottle IVPUSH ONE (13:03)
--- NOTE | 2019-10-16 13:46 | CT ---
CT chest Technique: Multiple axial sections through the chest were obtained. Intravenous contrast was utilized. Reconstructed coronal and sagittal images were obtained. Findings: No pericardial thickening is seen. Coronary artery calcification is noted. Aorta shows no aneurysm. Mediastinum and hilar regions appear within normal limits. No axillary adenopathy is seen. Slight areas of atelectasis are seen posteriorly within both lung bases. Lungs otherwise are clear. No pleural effusions or pneumothorax are seen. Bone window settings were reviewed. No acute osseous finding is appreciated. Compression deformity is noted within the mid thoracic spine which contains a hemangioma. This is most likely old. There is a fracture with slight offset within the mid sternum. This appears to contain a lucency and could represent pathologic fracture. Age of this is otherwise indeterminate. Impression: 1. Fracture within the mid sternum. Questionable lesion in this area and difficult to exclude pathologic fracture. This is slightly displaced. Age of this is indeterminate but no callus is appreciated. 2. Mild anterior wedging of a mid thoracic vertebral body which shows evidence of hemangioma. This is most likely old. 3. Mild areas of atelectasis within both posterior lungs. 4. No acute abnormality is otherwise appreciated. Diagnostic code #3 This report was dictated in MDT CT abdomen and pelvis Technique: Multiple axial sections were obtained from above the dome of the diaphragm inferiorly through the pubic symphysis. Intravenous contrast was utilized. Delayed images were obtained through the bladder. Findings: Liver contains no focal parenchymal abnormality. Spleen is slightly enlarged measuring 15 0.0 cm in length. Adrenal glands show no nodule. Pancreas shows no discrete abnormality. Gallbladder contains a single calcified gallstone. Aorta shows atherosclerotic change without aneurysm. Kidneys show symmetric contrast enhancement. Cyst is noted within the left kidney measuring 8.7 cm. Several small cortical cysts are seen throughout other portions of the kidneys. No pelvic mass or adenopathy is seen. Delayed images shows contrast within the bladder. Bone window settings were reviewed which shows degenerative change with vacuum phenomena and disc space narrowing at L4-5 and L5-S1. Degenerative apophyseal change is seen within the lower lumbar spine. Impression: 1. Splenomegaly. Etiology is not identified on this study. 2. Single calcified gallstone. Renal cyst. 3. Nothing acute is appreciated on CT study of the abdomen and pelvis. Diagnostic code #2 This report was dictated in MDT
[2019-10-16 14:21] VITALS: BP 146/82; PULSE 70
== END 2019-10-16 14:22 | disposition home or self-care (01) ==
LOC: JD.ED 11:22
DX: S20.212A Contusion of left front wall of thorax, initial encounter (principal); S50.12XA Contusion of left forearm, initial encounter; S60.222A Contusion of left hand, initial encounter; G20 Parkinson's disease; Z79.899 Other long term (current) drug therapy; W01.0XXA Fall on same level from slipping, tripping and stumbling without subsequent striking against object, initial encounter; Y92.002 Bathroom of unspecified non-institutional (private) residence as the place of occurrence of the external cause
CPT/HCPCS: 71260; 74177; 99283; Q9967

== ENCOUNTER 2020-11-03 11:31 | Emergency (ER) | payer MEDICARE, OTHER ==
[2020-11-03 11:50] VITALS: BP 145/76; PULSE 67
[2020-11-03] MEDS ORDERED: Sodium Chloride 0.9% 10 ML Syringe FLUSH PRN (11:54)
--- NOTE | 2020-11-03 12:13 | EDM.PDOC ---
ED HPI GENERAL MEDICAL PROBLEM - General Chief Complaint: Lower Extremity Injury/Pain Stated Complaint: FLUID RETENTION/DARK URINE Time Seen by Provider: 11/03/20 11:51 Source of Information: Reports: Patient, Family (), RN Notes Reviewed History Limitations: Reports: No Limitations - History of Present Illness INITIAL COMMENTS - FREE TEXT/NARRATIVE: Patient is an 80-year-old male who presents to the ER with his for the evaluation of his suspected fluid retention. The patient has a history of Parkinson's, and the states that the patient has been having increased falls, but he is not hurt himself that she is aware of. She has noted some increased fluid retention in his left leg for the last week, it seems to start in his foot, and work its way up the leg. She states that he is not having any pain in the leg. She noted today as well that the patient has been having some issues with left-sided arm swelling, so much that she was having difficulties getting his wedding ring off of his finger. Patient's not had any sick symptoms like fevers or chills, cough or shortness of breath, or any sort of nausea/vomiting/diarrhea. The states however that he does have some darker colored urine lately as well. Patient's primary care provider is Dr. Diallo and the was going to try to get him in for an appointment with his doctor but his schedule is full and they directed him to the ER for ongoing management. The is somewhat concerned about his increased weakness and resultant falls. She has thought or talked about needing more/different care for him. They already do have home health currently. - Related Data Allergies Allergy/AdvReac Type Severity Reaction Status Date / Time No Known Allergies Allergy Verified 07/26/19 18:34 Home Meds: Home Meds Carbidopa/Levodopa [Carbidopa-Levo ER 25-100] 25 - 100 tab PO TID 03/10/18 [History] Cefdinir [Omnicef] 300 mg PO BID 7 Days #14 cap 11/03/20 [Rx] Dicyclomine [Bentyl] 20 mg PO DAILY 11/03/20 [History] Donepezil HCl 10 mg PO DAILY 11/03/20 [History] Rotigotine [Neupro] 1 patch TD DAILY 11/03/20 [History] Venlafaxine [Venlafaxine HCl ER] 175 mg PO BEDTIME 11/03/20 [History] Past Medical History Cardiovascular History: Reports: Heart Murmur Genitourinary History: Reports: Renal Calculus Neurological History: Reports: Parkinson's (Noticed about 7 years ago. He does not feel that medications have helped much. Has very poor balance.) Psychiatric History: Reports: Anxiety, Depression - Past Surgical History HEENT Surgical History: Reports: Cataract Surgery GI Surgical History: Reports: Other (See Below) Other GI Surgeries/Procedures: hemorrhoid surgery Musculoskeletal Surgical History: Reports: Other (See Below) Other Musculoskeletal Surgeries/Procedures:: back surgery Social & Family History - Family History Family Medical History: No Pertinent Family History - Caffeine Use Caffeine Use: Reports: Soda, Tea Caffeine Use Comment: occasionally - Living Situation & Occupation Living situation: Reports: Occupation: Retired Review of Systems - Review of Systems Review Of Systems: Comprehensive ROS is negative, except as noted in HPI. ED EXAM, GENERAL - Physical Exam Exam: See Below Exam Limited By: No Limitations General Appearance: Alert, WD/WN, No Apparent Distress Respiratory/Chest: No Respiratory Distress, Lungs Clear, Normal Breath Sounds, No Accessory Muscle Use, Chest Non-Tender Cardiovascular: Normal Peripheral Pulses, Regular Rate, Rhythm, Systolic Murmur, Other (1+ edema to left leg) Peripheral Pulses: 2+: Dorsalis Pedis (L), Dorsalis Pedis (R) GI/Abdominal: Normal Bowel Sounds, Soft, Non-Tender, No Distention, No Mass Extremities: Normal Range of Motion, Normal Capillary Refill, Pedal Edema (1+ edema to L lower leg, his left hand also appears swollen, and his left ring finger seems to be swollen to the point where his ring may result in an issue trying to remove it) Neurological: Alert, Oriented, Normal Cognition, No Motor/Sensory Deficits Psychiatric: Normal Affect, Normal Mood Skin Exam: Warm, Dry, Intact, Normal Color, No Rash #1 Interpretation EKG Date: 11/03/20 Time: 12:27 Rhythm: NSR Rate (Beats/Min): 64 [place]: Normal P-Wave: Present QRS: Normal ST-T: Normal QT: Prolonged (QTc @ 511) Comparison: No Change EKG Interpretation Comments: No obvious ischemia or acute ST changes noted, reviewed by myself and Dr. Kuylen. Course - Vital Signs Last Recorded V/S: Last Vital Signs Temp 98.5 F 11/03/20 11:46 Pulse 67 11/03/20 11:46 Resp 18 11/03/20 11:46 BP 145/76 H 11/03/20 11:46 Pulse Ox 98 11/03/20 11:46 - Orders/Labs/Meds Orders: Active Orders 24 hr Category Date Time Status Peripheral IV Care [RC] . DIRECTED Care 11/03/20 11:54 Active CULTURE URINE [MREF] Urgent Lab 11/03/20 14:28 Ordered PRO B-TYPE NATRIUR PEPT,BNPPRO [CHEM] Stat Lab 11/03/20 12:13 Received Sodium Chloride 0.9% [Saline Flush] Med 11/03/20 11:54 Active 10 ml FLUSH ASDIRECTED PRN Peripheral IV Insertion Adult [OM.PC] Stat Oth 11/03/20 11:54 Ordered Medication Orders Sodium Chloride (Sodium Chloride 0.9% 10 Ml Syringe) 10 ml FLUSH ASDIRECTED PRN PRN Reason: Keep Vein Open Last Admin: 11/03/20 12:36 Dose: 10 ml Documented by: LEXX Labs: Laboratory Tests 11/03/20 11/03/20 11/03/20 Range/Units 12:13 12:13 12:13 WBC 3.76 L (4.23-9.07) K/mm3 RBC 4.32 L (4.63-6.08) M/mm3 Hgb 13.5 L (13.7-17.5) gm/dl Hct 40.6 (40.1-51.0) % MCV 94.0 H (79.0-92.2) fl MCH 31.3 (25.7-32.2) pg MCHC 33.3 (32.2-35.5) g/dl RDW Std Deviation 44.4 H (35.1-43.9) fL Plt Count 81 L (163-337) K/mm3 MPV 10.0 (9.4-12.3) fl Neut % (Auto) 65.4 (34.0-67.9) % Lymph % (Auto) 24.5 (21.8-53.1) % [place] % (Auto) 7.4 (5.3-12.2) % Eos % (Auto) 1.9 (0.8-7.0) Baso % (Auto) 0.5 (0.1-1.2) % Neut # (Auto) 2.46 (1.78-5.38) K/mm3 Lymph # (Auto) 0.92 L (1.32-3.57) K/mm3 [place] # (Auto) 0.28 L (0.30-0.82) K/mm3 Eos # (Auto) 0.07 (0.04-0.54) K/mm3 Baso # (Auto) 0.02 (0.01-0.08) K/mm3 Manual Slide Review Abnormal smear PT 11.7 (9.7-12.0) SECONDS INR 1.06 APTT 26.5 (21.7-31.4) SECONDS Sodium 145 (136-145) mEq/L Potassium 4.0 (3.5-5.1) mEq/L Chloride 109 H (98-107) mEq/L Carbon Dioxide 29 (21-32) mEq/L Anion Gap 11.0 (5-15) BUN 18 (7-18) mg/dL Creatinine 1.1 (0.7-1.3) mg/dL Est Cr Clr Drug Dosing 61.23 mL/min Estimated GFR (MDRD) > 60 (>60) mL/min BUN/Creatinine Ratio 16.4 (14-18) Glucose 91 (70-99) mg/dL Calcium 9.3 (8.5-10.1) mg/dL Magnesium 1.9 (1.8-2.4) mg/dL Total Bilirubin 0.9 (0.2-1.0) mg/dL AST 63 H (15-37) U/L ALT 10 L (16-63) U/L Alkaline Phosphatase 108 (46-116) U/L Troponin I 0.022 (0.00-0.056) ng/mL Total Protein 6.6 (6.4-8.2) g/dl Albumin 3.4 (3.4-5.0) g/dl Globulin 3.2 gm/dL Albumin/Globulin Ratio 1.1 (1-2) Urine Color (Yellow) Urine Appearance (Clear) Urine pH (5.0-8.0) Ur Specific [place] (1.005-1.030) Urine Protein (Negative) Urine Glucose (UA) (Negative) Urine Ketones (Negative) Urine Occult Blood (Negative) Urine Nitrite (Negative) Urine Bilirubin (Negative) Urine Urobilinogen (0.2-1.0) Ur Leukocyte Esterase (Negative) U Hyaline Cast (Auto) (0-5) /lpf Urine RBC (0-5) /hpf Urine WBC (0-5) /hpf Ur Squamous Epith Cells (0-5) /hpf Urine Bacteria (FEW) /hpf Urine Mucus (FEW) /hpf 11/03/20 Range/Units 14:15 WBC (4.23-9.07) K/mm3 RBC (4.63-6.08) M/mm3 Hgb (13.7-17.5) gm/dl Hct (40.1-51.0) % MCV (79.0-92.2) fl MCH (25.7-32.2) pg MCHC (32.2-35.5) g/dl RDW Std Deviation (35.1-43.9) fL Plt Count (163-337) K/mm3 MPV (9.4-12.3) fl Neut % (Auto) (34.0-67.9) % Lymph % (Auto) (21.8-53.1) % [place] % (Auto) (5.3-12.2) % Eos % (Auto) (0.8-7.0) Baso % (Auto) (0.1-1.2) % Neut # (Auto) (1.78-5.38) K/mm3 Lymph # (Auto) (1.32-3.57) K/mm3 [place] # (Auto) (0.30-0.82) K/mm3 Eos # (Auto) (0.04-0.54) K/mm3 Baso # (Auto) (0.01-0.08) K/mm3 Manual Slide Review PT (9.7-12.0) SECONDS INR APTT (21.7-31.4) SECONDS Sodium (136-145) mEq/L Potassium (3.5-5.1) mEq/L Chloride (98-107) mEq/L Carbon Dioxide (21-32) mEq/L Anion Gap (5-15) BUN (7-18) mg/dL Creatinine (0.7-1.3) mg/dL Est Cr Clr Drug Dosing mL/min Estimated GFR (MDRD) (>60) mL/min BUN/Creatinine Ratio (14-18) Glucose (70-99) mg/dL Calcium (8.5-10.1) mg/dL Magnesium (1.8-2.4) mg/dL Total Bilirubin (0.2-1.0) mg/dL AST (15-37) U/L ALT (16-63) U/L Alkaline Phosphatase (46-116) U/L Troponin I (0.00-0.056) ng/mL Total Protein (6.4-8.2) g/dl Albumin (3.4-5.0) g/dl Globulin gm/dL Albumin/Globulin Ratio (1-2) Urine Color Yellow (Yellow) Urine Appearance Slt cloudy H (Clear) Urine pH 7.0 (5.0-8.0) Ur Specific [place] > or = 1.030 (1.005-1.030) Urine Protein 2+ H (Negative) Urine Glucose (UA) Negative (Negative) Urine Ketones Trace H (Negative) Urine Occult Blood Trace-intact H (Negative) Urine Nitrite Negative (Negative) Urine Bilirubin Negative (Negative) Urine Urobilinogen 1.0 (0.2-1.0) Ur Leukocyte Esterase Trace H (Negative) U Hyaline Cast (Auto) 0-5 (0-5) /lpf Urine RBC 30-40 H (0-5) /hpf Urine WBC 30-40 H (0-5) /hpf Ur Squamous Epith Cells 0-5 (0-5) /hpf Urine Bacteria Many H (FEW) /hpf Urine Mucus Few (FEW) /hpf Meds: Medications Generic Name Dose Route Start Last Admin Trade Name Khaiq PRN Reason Stop Dose Admin Sodium Chloride 10 ml 11/03/20 11:54 11/03/20 12:36 Sodium Chloride 0.9% 10 Ml Syringe FLUSH 10 ml ASDIRECTED PRN Administration Keep Vein Open - Re-Assessments/Exams Free Text/Narrative Re-Assessment/Exam: 11/03/20 12:15 Patient presents to the ER for the evaluation of his fluid retention and darker colored urine. After talking with the patient and his , the is concerned about him having increased weakness due to Parkinson's. I will have Jaimie Bailon our social media sr strategy manager go talk with him about their options. We will get basic labs along with a EKG as well for ongoing management. Patient does have a pretty systolic murmur noted on exam. The patient and family could not remember when he had his last echocardiogram. 11/03/20 12:36 Jaimie Bailon was able to talk with the patient, and they have opted for physical therapy versus in-home health care. Jaimie Bailon did have the appropriate paperwork brought over to me, this has been signed and will be sent to [facility] the family's choice. 11/03/20 13:13 Patient's laboratory evaluation has essentially resulted, I am still awaiting a BNP and a urinalysis. Patient CBC did demonstrate a modestly low white count at 3.76, hemoglobin is within normal limits at 13.9, but is platelets are somewhat low at 81 as well. Patient CMP is fairly unremarkable, troponin is within normal less than 0.022. EKG was reviewed by myself and Dr. Ortega, there is no discrete change from his EKG done in July 2019. The patient's ultrasound report was negative for any sign of DVT within the left lower leg. 11/03/20 13:41 Chest x-ray was negative for any sort of acute findings. Still awaiting BNP and a urinalysis. 11/03/20 14:02 Apparently the machine for BNP is down, but the tech is here to fix it. I would like to know the patient's BNP status; as I do believe that his retention is directly related to his heart function. He may necessitate the use of diuretics. I will make this known to the family-hopefully they will be understanding. Also have not gotten a UA either-RN is aware. 11/03/20 14:46 Patient's urinalysis was collected. It is suspicious for UTI we will go ahead and get him started on antibiotics for this. Dosing will be Omnicef 2 times a day for 7 days. Departure - Departure Time of Disposition: 15:09 Disposition: Home, Self-Care 01 Condition: Good Clinical Impression: Generalized weakness, Frequent falls, Parkinsons disease, Mild peripheral edema UTI (urinary tract infection) Qualifiers: Urinary tract infection type: acute cystitis Hematuria presence: with hematuria Qualified Code(s): N30.01 - Acute cystitis with hematuria - Discharge Information *PRESCRIPTION DRUG MONITORING PROGRAM REVIEWED*: No *COPY OF PRESCRIPTION DRUG MONITORING REPORT IN PATIENT ALEJANDRO: No Prescriptions: Cefdinir [Omnicef] 300 mg PO BID 7 Days #14 cap Instructions: Urinary Tract Infection, Adult, [id number], Fall Prevention in the Home, Adult, [id number] Referrals: Cali Hernandez MD [Primary Care Provider] - Forms: ED Department Discharge Additional Instructions: You were evaluated in the ER today for your lower leg edema, and getting generally more weak. Your urinalysis was positive for a urinary tract infection at this time, you have been started on an antibiotic, Omnicef. You will need to take 1 tablet 2 times a day for the next 7 days. A culture was sent for antibiotic stewardship. This is to make sure that we are picking an appropriate antibiotic to treat the UTI that you have today. You should be made notified in 48 to 72 hours if you should necessitate a change in your antibiotic. Antibiotics can take up to 48 hours to start working, so please expect that amount of time for your symptoms to start getting better. This medication was electronically sent to the [facility] located near [facility]. All other work-up in the ER is essentially unremarkable however I am still awaiting a BNP level, order to check on heart failure. However the machine was down at today's visit, and is going to take some time to fix. You will be called and made notified if you should need a medicine like a diuretic to get rid of some of the fluid that you seem to be retaining. Ultrasound was negative for any sort of DVT at today's visit. Recommend you follow-up with your regular care provider for ongoing management, and to schedule a reevaluation appointment to make sure that your symptoms are getting better as expected. Also a PT referral was placed on your behalf, [facility] should be getting a hold of you for ongoing management. Do not hesitate to return to the ER at any time if symptoms change or worsen. Sepsis Event Note (ED) - Evaluation Sepsis Screening Result: No Definite Risk - Focused Exam Vital Signs: Vital Signs Temp Pulse Resp BP Pulse Ox 11/03/20 11:46 98.5 F 67 18 145/76 H 98 - My Orders Last 24 Hours: My Active Orders 11/03/20 11:54 Peripheral IV Care [RC] . DIRECTED Sodium Chloride 0.9% [Saline Flush] 10 ml FLUSH ASDIRECTED PRN Peripheral IV Insertion Adult [OM.PC] Stat 11/03/20 12:13 PRO B-TYPE NATRIUR PEPT,BNPPRO [CHEM] Stat 11/03/20 14:28 CULTURE URINE [MREF] Urgent - Assessment/Plan Last 24 Hours: My Active Orders 11/03/20 11:54 Peripheral IV Care [RC] . DIRECTED Sodium Chloride 0.9% [Saline Flush] 10 ml FLUSH ASDIRECTED PRN Peripheral IV Insertion Adult [OM.PC] Stat 11/03/20 12:13 PRO B-TYPE NATRIUR PEPT,BNPPRO [CHEM] Stat 11/03/20 14:28 CULTURE URINE [MREF] Urgent
--- NOTE | 2020-11-03 12:49 | US ---
Left lower extremity deep venous ultrasound: Duplex and color Doppler evaluation was obtained on the left common femoral, proximal greater saphenous, superficial femoral, popliteal, posterior tibial and peroneal veins. Right common femoral vein was also evaluated. Comparison: No prior venous imaging is available. Findings: Visualized veins show normal phasic flow, augmentation and compression. Impression: 1. No findings of deep venous thrombosis is seen within the left lower extremity or within the right common femoral vein. Diagnostic code #1
--- NOTE | 2020-11-03 13:26 | CR ---
Chest: Frontal view of the chest was obtained. Comparison: No prior chest x-ray is available, prior chest CT studies of 10/26/19 and 07/26/19. Heart size and mediastinum are within normal limits. Lungs show no definite acute parenchymal change. Bony structures show scattered degenerative disc space narrowing within the spine. No acute osseous abnormality is appreciated on this frontal imaging. Impression: 1. No acute intrathoracic process is seen on frontal chest x-ray. Diagnostic code #2
== END 2020-11-03 15:30 | disposition home or self-care (01) ==
LOC: JD.ED 11:31
DX: R60.0 Localized edema (principal); N30.01 Acute cystitis with hematuria; G20 Parkinson's disease; R29.6 Repeated falls
CPT/HCPCS: 36415; 71045; 71045-26; 80053; 81001; 83735; 83880; 84484; 85025; 85610; 85730; 87086; 87088; 87186; 93005; 93971-26-LT; 93971-LT; 99285-25